=== PATIENT | female | born 1965 | race Caucasian/White ===

== ENCOUNTER 2016-10-27 08:36 | Outpatient (CLI) | payer OTHER | END 2016-10-27 08:37 | disposition home or self-care (01) | DX: I82.509 Chronic embolism and thrombosis of unspecified deep veins of unspecified lower extremity (principal); Z79.01 Long term (current) use of anticoagulants ==

== ENCOUNTER 2016-11-10 09:32 | Outpatient (CLI) | payer OTHER | END 2016-11-10 09:33 | disposition home or self-care (01) | DX: I82.509 Chronic embolism and thrombosis of unspecified deep veins of unspecified lower extremity (principal); Z79.01 Long term (current) use of anticoagulants ==

== ENCOUNTER 2016-11-24 08:39 | Outpatient (CLI) | payer OTHER | END 2016-11-24 08:40 | disposition home or self-care (01) | DX: I82.509 Chronic embolism and thrombosis of unspecified deep veins of unspecified lower extremity (principal); Z79.01 Long term (current) use of anticoagulants ==

== ENCOUNTER 2016-12-22 08:39 | Outpatient (CLI) | payer OTHER | END 2016-12-22 08:40 | disposition home or self-care (01) | DX: I82.509 Chronic embolism and thrombosis of unspecified deep veins of unspecified lower extremity (principal); Z79.01 Long term (current) use of anticoagulants ==

== ENCOUNTER 2017-01-03 08:00 | Outpatient (CLI) | payer OTHER | END 2017-01-03 08:01 | disposition home or self-care (01) | DX: I82.509 Chronic embolism and thrombosis of unspecified deep veins of unspecified lower extremity (principal); Z79.01 Long term (current) use of anticoagulants ==

== ENCOUNTER 2017-02-01 14:26 | Outpatient (CLI) | payer OTHER | END 2017-02-01 14:27 | disposition home or self-care (01) | DX: I82.509 Chronic embolism and thrombosis of unspecified deep veins of unspecified lower extremity (principal); Z79.01 Long term (current) use of anticoagulants ==

== ENCOUNTER 2017-02-14 12:28 | Outpatient (CLI) | payer OTHER | END 2017-02-14 12:29 | disposition home or self-care (01) | LOC: LAB.S 12:28 | PROVIDERS: ATTEND Internal Medicine | DX: I82.509 Chronic embolism and thrombosis of unspecified deep veins of unspecified lower extremity (principal); Z79.01 Long term (current) use of anticoagulants | CPT/HCPCS: 85610 ==

== ENCOUNTER 2017-02-21 08:34 | Outpatient (CLI) | payer OTHER | END 2017-02-21 08:35 | disposition home or self-care (01) | LOC: LAB.S 08:34 | PROVIDERS: ATTEND Internal Medicine | DX: I82.509 Chronic embolism and thrombosis of unspecified deep veins of unspecified lower extremity (principal); Z79.01 Long term (current) use of anticoagulants | CPT/HCPCS: 85610 ==

== ENCOUNTER 2017-03-07 14:12 | Outpatient (CLI) | payer OTHER | END 2017-03-07 23:59 | disposition home or self-care (01) | LOC: LAB.S 14:12 | PROVIDERS: ATTEND Internal Medicine | DX: I82.509 Chronic embolism and thrombosis of unspecified deep veins of unspecified lower extremity (principal); Z79.01 Long term (current) use of anticoagulants | CPT/HCPCS: 85610 ==

== ENCOUNTER 2017-04-01 20:42 | Emergency (ER) | payer OTHER ==
--- NOTE | 2017-04-01 21:09 | ED Physician Documentation ---
PD HPI LOWER EXT INJURY - Stated complaint Stated Complaint: RT ANKLE PAIN - Chief complaint Chief Complaint: Ext Problem - History obtained from History obtained from: Patient - History of Present Illness PD HPI LOW EXT INJURY LOCATION: Right, Ankle Type of injury: Fall Where injury occurred: Home Timing - onset: Enter time (17:00) Timing - details: Abrupt onset Improved by: Rest, Immobilization Worsened by: Moving, Palpating Associated symptoms: Swelling. No: Weakness, Numbness Similar symptoms before: Has not had sx before Recently seen: Not recently seen - Additional information Additional information: tripped at home 5pm tonight, sustained twisting injury to right ankle, c/o right ankle pain, lateral aspect Review of Systems Musculoskeletal: reports: Extremity pain, Joint pain, Extremity swelling, Joint swelling, Pain with weight bearing. 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 - Present Medications Home Medications: Ambulatory Orders Medication Instructions Recorded Confirmed Acetaminophen 1 mg PO Q8HR 04/01/17 04/01/17 HYDROcod/ACETAM 5/325 [Morganza 5/325] 1 - 2 ea PO Q6H PRN #15 tablet 04/01/17 - Allergies Allergies/Adverse Reactions: Allergies Allergy/AdvReac Type Severity Reaction Status Date / Time Penicillins Allergy Hives Verified 04/01/17 21:02 Sulfa (Sulfonamide Allergy Hives Verified 04/01/17 21:02 Antibiotics) - Social History Does the pt smoke?: No Smoking Status: Never smoker Does the pt drink ETOH?: No Does the pt have substance abuse?: No - Immunizations Immunizations are current?: Yes - POLST Patient has POLST: No PD ED PE NORMAL - Vitals Vital signs reviewed: Yes - General General: Alert and oriented X 3, No acute distress, Well developed/nourished - Derm Derm: Normal color, Warm and dry - Neuro Neuro: No motor deficit, No sensory deficit PD ED PE EXPANDED - Extremities Extremities: Tenderness (right lateral malleolus), Limited ROM, Swelling, Pedal Pulses Present, Sensory intact, Vascular intact Results - Vitals Vitals: Vital Signs - 24 hr 04/01/17 04/01/17 20:50 21:43 Temperature 37.3 C Heart Rate 101 H 76 Respiratory 17 18 Rate Blood Pressure 182/101 H 147/90 H O2 Saturation 98 97 Oxygen O2 Source Room air Procedures - Splint (location) Lower extremity right Splint applied by: Tech Type of splint: Fiberglass, Short leg, Posterior, Stirrup Other: Patient tolerated well, No complications, Neurovascular intact, Good alignment, Crutches provided PD MEDICAL DECISION MAKING - ED course Complexity details: reviewed results, re-evaluated patient, considered differential, d/w patient Departure - Departure Disposition: 01 Home, Self Care Clinical Impression: Fracture, fibula Qualifiers: Encounter type: initial encounter Fibula location: distal Fracture type: closed Fracture morphology: unspecified fracture morphology Laterality: unspecified laterality Qualified Code(s): S82.839A - Other fracture of upper and lower end of unspecified fibula, initial encounter for closed fracture Condition: Good Instructions: ED Crutch Walking, ED Splint Care Fiberglass, ED Fx Ankle Lateral Malleolus Follow-Up: Collins Merrill MD [Provider Admit Priv/Credential] - Within 3 Days (Call to arrange for next available appointment) Prescriptions: HYDROcod/ACETAM 5/325 [[place]organza 5/325] 1 - 2 ea PO Q6H PRN #15 tablet PRN Reason: Pain Forms: Activity restrictions Discharge Date/Time: 04/01/17 22:20
--- NOTE | 2017-04-01 21:39 | XRAY Preliminary Report ---
Exam: XR Ankle 3 View RT IMPRESSION: Acuna B ankle injury. There is mildly displaced fracture through the distal fibula at the level of the syndesmosis. No medial or posterior malleolar fracture. Joint spacing through the ankle mortise is within normal limits. [facility] SITE ID: [id number]
--- NOTE | 2017-04-01 21:41 | XRAY Report ---
EXAM: RIGHT ANKLE RADIOGRAPHY EXAM DATE: 04/01/2017 09:16 PM. CLINICAL HISTORY: Ankle pain COMPARISON: None. TECHNIQUE: 3 views. FINDINGS: Bones: There is a ventricular fracture through the distal fibula at the level of the syndesmosis. Mil d displacement. No evidence of medial or posterior malleolar fractures. Joints: Normal. No effusion. No subluxations. The ankle mortise is normally aligned. Soft Tissues: There is mild lateral ankle soft tissue swelling. IMPRESSION: Acuna B ankle injury. There is mildly displaced fracture through the distal fibula at the level of the syndesmosis. No medial or posterior malleolar fracture. Joint spacing through the ankle mortise is within normal limits. [facility] Referring Provider Line: [phone] SITE ID: [id number]
[2017-04-01 21:45] VITALS: BP 147/90
== END 2017-04-01 22:20 | disposition home or self-care (01) ==
LOC: ED 20:42
DX: S82.831A Other fracture of upper and lower end of right fibula, initial encounter for closed fracture (principal); W01.0XXA Fall on same level from slipping, tripping and stumbling without subsequent striking against object, initial encounter; X50.1XXA Overexertion from prolonged static or awkward postures, initial encounter; Y92.009 Unspecified place in unspecified non-institutional (private) residence as the place of occurrence of the external cause; Z86.718 Personal history of other venous thrombosis and embolism; Z79.01 Long term (current) use of anticoagulants
CPT/HCPCS: 29515; 99283

== ENCOUNTER 2017-04-06 14:35 | Outpatient (CLI) | payer OTHER | END 2017-04-06 14:36 | disposition home or self-care (01) | LOC: LAB.F 14:35 | PROVIDERS: ATTEND Internal Medicine | DX: I82.509 Chronic embolism and thrombosis of unspecified deep veins of unspecified lower extremity (principal); Z79.01 Long term (current) use of anticoagulants | CPT/HCPCS: 85610 ==

== ENCOUNTER 2017-05-04 13:41 | Outpatient (CLI) | payer OTHER | END 2017-05-04 13:42 | disposition home or self-care (01) | LOC: LAB.F 13:41 | PROVIDERS: ATTEND Internal Medicine | DX: I82.509 Chronic embolism and thrombosis of unspecified deep veins of unspecified lower extremity (principal); Z79.01 Long term (current) use of anticoagulants | CPT/HCPCS: 85610 ==

== ENCOUNTER 2017-05-18 14:10 | Outpatient (CLI) | payer OTHER | END 2017-05-18 14:11 | disposition home or self-care (01) | LOC: LAB.F 14:10 | PROVIDERS: ATTEND Internal Medicine | DX: I82.509 Chronic embolism and thrombosis of unspecified deep veins of unspecified lower extremity (principal); Z79.01 Long term (current) use of anticoagulants | CPT/HCPCS: 85610 ==

== ENCOUNTER 2017-06-01 14:12 | Outpatient (CLI) | payer OTHER | END 2017-06-01 14:13 | disposition home or self-care (01) | LOC: LAB.F 14:12 | PROVIDERS: ATTEND Internal Medicine | DX: I82.509 Chronic embolism and thrombosis of unspecified deep veins of unspecified lower extremity (principal); Z79.01 Long term (current) use of anticoagulants | CPT/HCPCS: 85610 ==

== ENCOUNTER 2017-06-14 08:45 | Outpatient (CLI) | payer OTHER | END 2017-06-14 08:46 | disposition home or self-care (01) | LOC: LAB.F 08:45 | PROVIDERS: ATTEND Internal Medicine | DX: I82.509 Chronic embolism and thrombosis of unspecified deep veins of unspecified lower extremity (principal); Z79.01 Long term (current) use of anticoagulants | CPT/HCPCS: 85610 ==

== ENCOUNTER 2017-07-12 10:02 | Outpatient (CLI) | payer OTHER | END 2017-07-12 10:03 | disposition home or self-care (01) | LOC: LAB.F 10:02 | PROVIDERS: ATTEND Internal Medicine | DX: I82.509 Chronic embolism and thrombosis of unspecified deep veins of unspecified lower extremity (principal); Z79.01 Long term (current) use of anticoagulants; I82.409 Acute embolism and thrombosis of unspecified deep veins of unspecified lower extremity; D68.52 Prothrombin gene mutation | CPT/HCPCS: 85610 ==

== ENCOUNTER 2017-08-15 10:26 | Outpatient (CLI) | payer OTHER | END 2017-08-15 10:27 | disposition home or self-care (01) | LOC: LAB.F 10:26 | PROVIDERS: ATTEND Internal Medicine | DX: I82.509 Chronic embolism and thrombosis of unspecified deep veins of unspecified lower extremity (principal); Z79.01 Long term (current) use of anticoagulants | CPT/HCPCS: 85610 ==

== ENCOUNTER 2017-09-12 10:31 | Outpatient (CLI) | payer OTHER | END 2017-09-12 10:32 | disposition home or self-care (01) | LOC: LAB.F 10:31 | PROVIDERS: ATTEND Internal Medicine | DX: I82.509 Chronic embolism and thrombosis of unspecified deep veins of unspecified lower extremity (principal); Z79.01 Long term (current) use of anticoagulants | CPT/HCPCS: 85610 ==

== ENCOUNTER 2017-10-10 10:03 | Outpatient (CLI) | payer OTHER | END 2017-10-10 10:04 | disposition home or self-care (01) | LOC: LAB.F 10:03 | PROVIDERS: ATTEND Internal Medicine | DX: I82.509 Chronic embolism and thrombosis of unspecified deep veins of unspecified lower extremity (principal); Z79.01 Long term (current) use of anticoagulants | CPT/HCPCS: 85610 ==

== ENCOUNTER 2017-11-07 09:34 | Outpatient (CLI) | payer OTHER | END 2017-11-07 09:35 | disposition home or self-care (01) | LOC: LAB.F 09:34 | PROVIDERS: ATTEND Internal Medicine | DX: I82.509 Chronic embolism and thrombosis of unspecified deep veins of unspecified lower extremity (principal); Z79.01 Long term (current) use of anticoagulants | CPT/HCPCS: 85610 ==

== ENCOUNTER 2017-11-14 09:29 | Outpatient (CLI) | payer OTHER | END 2017-11-14 09:30 | disposition home or self-care (01) | LOC: LAB.F 09:29 | PROVIDERS: ATTEND Internal Medicine | DX: I82.509 Chronic embolism and thrombosis of unspecified deep veins of unspecified lower extremity (principal); Z79.01 Long term (current) use of anticoagulants | CPT/HCPCS: 85610 ==

== ENCOUNTER 2017-11-21 14:22 | Outpatient (CLI) | payer OTHER | END 2017-11-21 14:23 | disposition home or self-care (01) | LOC: LAB.F 14:22 | PROVIDERS: ATTEND Internal Medicine | DX: I82.509 Chronic embolism and thrombosis of unspecified deep veins of unspecified lower extremity (principal); Z79.01 Long term (current) use of anticoagulants | CPT/HCPCS: 85610 ==

== ENCOUNTER 2017-12-19 12:42 | Outpatient (CLI) | payer OTHER | END 2017-12-19 12:43 | disposition home or self-care (01) | LOC: LAB.S 12:42 | PROVIDERS: ATTEND Internal Medicine | DX: I82.509 Chronic embolism and thrombosis of unspecified deep veins of unspecified lower extremity (principal); Z79.01 Long term (current) use of anticoagulants | CPT/HCPCS: 85610 ==

== ENCOUNTER 2018-01-17 10:31 | Outpatient (CLI) | payer OTHER | END 2018-01-17 10:32 | disposition home or self-care (01) | LOC: LAB.F 10:31 | PROVIDERS: ATTEND Internal Medicine | DX: I82.509 Chronic embolism and thrombosis of unspecified deep veins of unspecified lower extremity (principal); Z79.01 Long term (current) use of anticoagulants | CPT/HCPCS: 85610 ==

== ENCOUNTER 2018-02-13 12:06 | Outpatient (CLI) | payer OTHER | END 2018-02-13 12:07 | disposition home or self-care (01) | LOC: LAB.S 12:06 | PROVIDERS: ATTEND Internal Medicine | DX: I82.509 Chronic embolism and thrombosis of unspecified deep veins of unspecified lower extremity (principal); Z79.01 Long term (current) use of anticoagulants | CPT/HCPCS: 85610 ==

== ENCOUNTER 2018-02-20 11:32 | Outpatient (CLI) | payer OTHER | END 2018-02-20 11:33 | disposition home or self-care (01) | LOC: LAB.S 11:32 | PROVIDERS: ATTEND Internal Medicine | DX: I82.509 Chronic embolism and thrombosis of unspecified deep veins of unspecified lower extremity (principal); Z79.01 Long term (current) use of anticoagulants | CPT/HCPCS: 85610 ==

== ENCOUNTER 2018-03-20 10:21 | Outpatient (CLI) | payer OTHER | END 2018-03-20 10:22 | disposition home or self-care (01) | LOC: LAB.F 10:21 | PROVIDERS: ATTEND Internal Medicine | DX: I82.509 Chronic embolism and thrombosis of unspecified deep veins of unspecified lower extremity (principal); Z79.01 Long term (current) use of anticoagulants | CPT/HCPCS: 85610 ==

== ENCOUNTER 2018-04-18 11:13 | Outpatient (CLI) | payer OTHER | END 2018-04-18 11:14 | disposition home or self-care (01) | LOC: LAB.F 11:13 | PROVIDERS: ATTEND Internal Medicine | DX: I82.509 Chronic embolism and thrombosis of unspecified deep veins of unspecified lower extremity (principal); Z79.01 Long term (current) use of anticoagulants | CPT/HCPCS: 85610 ==

== ENCOUNTER 2018-05-15 10:42 | Outpatient (CLI) | payer OTHER | END 2018-05-15 10:43 | disposition home or self-care (01) | LOC: LAB.S 10:42 | PROVIDERS: ATTEND Internal Medicine | DX: I82.509 Chronic embolism and thrombosis of unspecified deep veins of unspecified lower extremity (principal); Z79.01 Long term (current) use of anticoagulants | CPT/HCPCS: 85610 ==

== ENCOUNTER → 2018-06-14 | Outpatient (CLI) | payer OTHER | LOC: LAB.F 08:00 | PROVIDERS: ATTEND Internal Medicine | DX: I82.509 Chronic embolism and thrombosis of unspecified deep veins of unspecified lower extremity (principal); Z79.01 Long term (current) use of anticoagulants | CPT/HCPCS: 85610 ==

== ENCOUNTER 2018-06-26 10:39 | Outpatient (CLI) | payer OTHER | END 2018-06-26 10:40 | disposition home or self-care (01) | LOC: LAB.F 10:39 | PROVIDERS: ATTEND Internal Medicine | DX: I82.509 Chronic embolism and thrombosis of unspecified deep veins of unspecified lower extremity (principal); Z79.01 Long term (current) use of anticoagulants | CPT/HCPCS: 85610 ==

== ENCOUNTER 2018-07-05 08:42 | Outpatient (CLI) | payer OTHER | END 2018-07-05 08:43 | disposition home or self-care (01) | LOC: LAB.F 08:42 | PROVIDERS: ATTEND Internal Medicine | DX: I82.509 Chronic embolism and thrombosis of unspecified deep veins of unspecified lower extremity (principal); Z79.01 Long term (current) use of anticoagulants | CPT/HCPCS: 85610 ==

== ENCOUNTER 2018-08-02 11:00 | Outpatient (CLI) | payer OTHER | END 2018-08-02 11:01 | disposition home or self-care (01) | LOC: LAB.F 11:00 | PROVIDERS: ATTEND Internal Medicine | DX: I82.509 Chronic embolism and thrombosis of unspecified deep veins of unspecified lower extremity (principal); Z79.01 Long term (current) use of anticoagulants | CPT/HCPCS: 85610 ==

== ENCOUNTER 2018-09-01 07:34 | Outpatient (CLI) | payer OTHER | END 2018-09-01 07:35 | disposition home or self-care (01) | LOC: LAB.F 07:34 | PROVIDERS: ATTEND Internal Medicine | DX: I82.509 Chronic embolism and thrombosis of unspecified deep veins of unspecified lower extremity (principal); Z79.01 Long term (current) use of anticoagulants | CPT/HCPCS: 85610 ==

== ENCOUNTER 2018-09-07 07:31 | Outpatient (CLI) | payer OTHER | END 2018-09-07 07:32 | disposition home or self-care (01) | LOC: LAB 07:31 | PROVIDERS: ATTEND Internal Medicine | DX: I82.509 Chronic embolism and thrombosis of unspecified deep veins of unspecified lower extremity (principal); Z79.01 Long term (current) use of anticoagulants | CPT/HCPCS: 85610 ==

== ENCOUNTER 2018-09-14 08:47 | Outpatient (CLI) | payer OTHER | END 2018-09-14 08:48 | disposition home or self-care (01) | LOC: LAB 08:47 | PROVIDERS: ATTEND Internal Medicine | DX: I82.509 Chronic embolism and thrombosis of unspecified deep veins of unspecified lower extremity (principal); Z79.01 Long term (current) use of anticoagulants | CPT/HCPCS: 85610 ==

== ENCOUNTER 2018-10-12 07:21 | Outpatient (CLI) | payer BC | END 2018-10-12 07:22 | disposition home or self-care (01) | LOC: LAB 07:21 | PROVIDERS: ATTEND Internal Medicine | DX: I82.509 Chronic embolism and thrombosis of unspecified deep veins of unspecified lower extremity (principal); Z79.01 Long term (current) use of anticoagulants | CPT/HCPCS: 85610 ==

== ENCOUNTER 2018-11-14 14:30 | Outpatient (CLI) | payer BC ==
[2018-11-14 17:17] LABS: BASOPHILS # (AUTO) 0.1 10^3/uL (0.0-0.1); EOSINOPHILS # (AUTO) 0.4 10^3/uL (0.0-0.7); EOSINOPHILS % (AUTO) 7.2 %; HGB - HEMOGLOBIN 14.7 g/dL (12.0-16.0); LYMPHOCYTES % (AUTO) 33.8 %; MEAN CORPUSCULAR HEMOGLOBIN 29.6 pg (27.0-31.0); MEAN CORPUSCULAR HGB CONC 32.8 g/dL (32.0-36.0); MEAN CORPUSCULAR VOLUME 90.3 fL (81.0-99.0); MEAN PLATELET VOLUME 8.2 fL (7.9-10.8); MONOCYTES # (AUTO) 0.4 10^3/uL (0.0-1.0); PLT - PLATELET COUNT 262 10^3/uL (130-450); RED BLOOD COUNT 4.95 10^6/uL (4.20-5.40); RED CELL DISTRIBUTION WIDTH 13.5 % (12.0-15.0); WHITE BLOOD COUNT 5.8 x10^3/uL (4.8-10.8)
[2018-11-14 17:27] LABS: ALBUMIN 4.2 g/dL (3.2-5.5); ALBUMIN/GLOBULIN RATIO 1.1 (1.0-2.2); ALKALINE PHOSPHATASE 81 IU/L (42-121); ALT ALANINE AMINOTRANSFERASE 49 IU/L (10-60); AST ASPARTATE AMINOTRANSFERASE 34 IU/L (10-42); BUN - BLOOD UREA NITROGEN 25 mg/dL (6-20); CALCIUM 9.9 mg/dL (8.5-10.3); CARBON DIOXIDE - CO2 29 mmol/L (21-32); CHLORIDE 98 mmol/L (101-111); CHOLESTEROL 202 mg/dL; CREATININE 0.8 mg/dL (0.4-1.0); GFR - MDRD 74 (>89); GLUCOSE 86 mg/dL (70-100); HDL CHOLESTEROL 68 mg/dL; LDL CHOLESTEROL,CALCULATED 113 mg/dL; LDL/HDL RATIO 1.7 (<4.4); SODIUM 139 mmol/L (135-145); VLDL CHOLESTEROL 21 mg/dL
== END 2018-11-14 14:31 | disposition home or self-care (01) ==
LOC: LAB.F 14:30
PROVIDERS: ATTEND Physician Assistant Medical
DX: Z00.00 Encounter for general adult medical examination without abnormal findings (principal); E55.9 Vitamin D deficiency, unspecified; I82.509 Chronic embolism and thrombosis of unspecified deep veins of unspecified lower extremity; Z79.899 Other long term (current) drug therapy; Z79.01 Long term (current) use of anticoagulants
CPT/HCPCS: 36415; 80053; 80061; 82306; 83721; 84443; 85025; 85610

== ENCOUNTER 2018-12-11 06:20 | Outpatient (CLI) | payer BC | END 2018-12-11 06:21 | disposition home or self-care (01) | LOC: LAB 06:20 | PROVIDERS: ATTEND Internal Medicine | DX: D68.51 Activated protein C resistance (principal) | CPT/HCPCS: 85610 ==

== ENCOUNTER 2019-01-16 07:03 | Outpatient (CLI) | payer BC | END 2019-01-16 07:04 | disposition home or self-care (01) | LOC: LAB 07:03 | PROVIDERS: ATTEND Internal Medicine | DX: D68.51 Activated protein C resistance (principal) | CPT/HCPCS: 85610 ==

== ENCOUNTER 2019-02-13 06:11 | Outpatient (CLI) | payer BC | END 2019-02-13 06:12 | disposition home or self-care (01) | LOC: LAB 06:11 | PROVIDERS: ATTEND Internal Medicine | DX: D68.51 Activated protein C resistance (principal) | CPT/HCPCS: 85610 ==

== ENCOUNTER 2019-02-21 03:13 | Outpatient (CLI) | payer BC | END 2019-02-21 03:14 | disposition home or self-care (01) | LOC: LAB 03:13 | PROVIDERS: ATTEND Internal Medicine | DX: D68.51 Activated protein C resistance (principal) | CPT/HCPCS: 85610 ==

== ENCOUNTER 2019-03-26 03:07 | Outpatient (CLI) | payer BC | END 2019-03-26 03:08 | disposition home or self-care (01) | LOC: LAB 03:07 | PROVIDERS: ATTEND Internal Medicine | DX: D68.51 Activated protein C resistance (principal) | CPT/HCPCS: 85610 ==

== ENCOUNTER 2019-04-02 09:44 | Outpatient (CLI) | payer BC | END 2019-04-02 09:45 | disposition home or self-care (01) | LOC: LAB.S 09:44 | PROVIDERS: ATTEND Internal Medicine | DX: D68.51 Activated protein C resistance (principal) | CPT/HCPCS: 85610 ==

== ENCOUNTER 2019-05-03 03:55 | Outpatient (CLI) | payer BC | END 2019-05-03 03:56 | disposition home or self-care (01) | LOC: LAB 03:55 | PROVIDERS: ATTEND Internal Medicine | DX: D68.51 Activated protein C resistance (principal) | CPT/HCPCS: 85610 ==

== ENCOUNTER 2019-05-10 04:41 | Outpatient (CLI) | payer BC | END 2019-05-10 04:42 | disposition home or self-care (01) | LOC: LAB 04:41 | PROVIDERS: ATTEND Internal Medicine | DX: D68.51 Activated protein C resistance (principal) | CPT/HCPCS: 85610 ==

== ENCOUNTER 2019-05-27 01:37 | Outpatient (CLI) | payer BC | END 2019-05-27 01:38 | disposition home or self-care (01) | LOC: LAB 01:37 | PROVIDERS: ATTEND Internal Medicine | DX: D68.51 Activated protein C resistance (principal) | CPT/HCPCS: 36415; 85610 ==

== ENCOUNTER 2019-06-28 03:48 | Outpatient (CLI) | payer BC | END 2019-06-28 03:49 | disposition home or self-care (01) | LOC: LAB 03:48 | PROVIDERS: ATTEND Internal Medicine | DX: D68.51 Activated protein C resistance (principal) | CPT/HCPCS: 85610 ==

== ENCOUNTER 2019-07-25 03:27 | Outpatient (CLI) | payer BC | END 2019-07-25 03:28 | disposition home or self-care (01) | LOC: LAB 03:27 | PROVIDERS: ATTEND Internal Medicine | DX: D68.51 Activated protein C resistance (principal) | CPT/HCPCS: 85610 ==

== ENCOUNTER 2019-08-24 07:44 | Outpatient (CLI) | payer BC | END 2019-08-24 07:45 | disposition home or self-care (01) | LOC: LAB.S 07:44 | PROVIDERS: ATTEND Nurse Practitioner Adult Health | DX: D68.51 Activated protein C resistance (principal); Z86.718 Personal history of other venous thrombosis and embolism | CPT/HCPCS: 85610 ==

== ENCOUNTER 2019-08-31 04:15 | Outpatient (CLI) | payer BC | END 2019-08-31 04:16 | disposition home or self-care (01) | LOC: LAB 04:15 | PROVIDERS: ATTEND Nurse Practitioner Adult Health | DX: D68.51 Activated protein C resistance (principal); Z86.718 Personal history of other venous thrombosis and embolism | CPT/HCPCS: 85610 ==

== ENCOUNTER 2019-09-19 04:13 | Outpatient (CLI) | payer BC | END 2019-09-19 04:14 | disposition home or self-care (01) | LOC: LAB 04:13 | PROVIDERS: ATTEND Nurse Practitioner Adult Health | DX: D68.51 Activated protein C resistance (principal) | CPT/HCPCS: 85610 ==

== ENCOUNTER 2019-10-01 08:21 | Outpatient (CLI) | payer BC | END 2019-10-01 08:22 | disposition home or self-care (01) | LOC: LAB.S 08:21 | PROVIDERS: ATTEND Nurse Practitioner Adult Health | DX: D68.51 Activated protein C resistance (principal) | CPT/HCPCS: 85610 ==

== ENCOUNTER 2019-10-15 06:46 | Outpatient (CLI) | payer BC | END 2019-10-15 06:47 | disposition home or self-care (01) | LOC: LAB 06:46 | PROVIDERS: ATTEND Nurse Practitioner Adult Health | DX: D68.51 Activated protein C resistance (principal) | CPT/HCPCS: 85610 ==

== ENCOUNTER 2019-10-30 06:25 | Outpatient (CLI) | payer BC | END 2019-10-30 06:26 | disposition home or self-care (01) | LOC: LAB 06:25 | PROVIDERS: ATTEND Nurse Practitioner Adult Health | DX: D68.51 Activated protein C resistance (principal) | CPT/HCPCS: 85610 ==

== ENCOUNTER 2019-11-27 06:36 | Outpatient (CLI) | payer BC | END 2019-11-27 06:37 | disposition home or self-care (01) | LOC: LAB 06:36 | PROVIDERS: ATTEND Nurse Practitioner Adult Health | DX: D68.51 Activated protein C resistance (principal) | CPT/HCPCS: 85610 ==

== ENCOUNTER 2019-12-18 07:12 | Outpatient (CLI) | payer BC | END 2019-12-18 07:13 | disposition home or self-care (01) | LOC: LAB 07:12 | PROVIDERS: ATTEND Nurse Practitioner Adult Health | DX: D68.51 Activated protein C resistance (principal); Z86.718 Personal history of other venous thrombosis and embolism | CPT/HCPCS: 85610 ==

== ENCOUNTER 2020-01-08 06:11 | Outpatient (CLI) | payer BC | END 2020-01-08 06:12 | disposition home or self-care (01) | LOC: LAB 06:11 | PROVIDERS: ATTEND Nurse Practitioner Adult Health | DX: D68.51 Activated protein C resistance (principal) | CPT/HCPCS: 85610 ==

== ENCOUNTER 2020-01-29 06:25 | Outpatient (CLI) | payer BC | END 2020-01-29 06:26 | disposition home or self-care (01) | LOC: LAB 06:25 | PROVIDERS: ATTEND Nurse Practitioner Adult Health | DX: D68.51 Activated protein C resistance (principal) | CPT/HCPCS: 85610 ==

== ENCOUNTER 2020-02-12 06:23 | Outpatient (CLI) | payer BC | END 2020-02-12 06:24 | disposition home or self-care (01) | LOC: LAB 06:23 | PROVIDERS: ATTEND Nurse Practitioner Adult Health | DX: D68.51 Activated protein C resistance (principal) | CPT/HCPCS: 85610 ==

== ENCOUNTER 2020-03-05 06:08 | Outpatient (CLI) | payer BC | END 2020-03-05 06:09 | disposition home or self-care (01) | LOC: LAB 06:08 | PROVIDERS: ATTEND Nurse Practitioner Adult Health | DX: D68.51 Activated protein C resistance (principal) | CPT/HCPCS: 85610 ==

== ENCOUNTER 2020-04-02 09:03 | Outpatient (CLI) | payer BC | END 2020-04-02 09:04 | disposition home or self-care (01) | LOC: LAB.R 09:03 | PROVIDERS: ATTEND Nurse Practitioner Adult Health | DX: D68.51 Activated protein C resistance (principal) | CPT/HCPCS: 85610 ==

== ENCOUNTER 2020-06-10 07:41 | Outpatient (CLI) | payer BC | END 2020-06-10 07:42 | disposition home or self-care (01) | LOC: LAB 07:41 | PROVIDERS: ATTEND Nurse Practitioner Adult Health | DX: D68.51 Activated protein C resistance (principal) | CPT/HCPCS: 85610 ==

== ENCOUNTER 2020-07-09 04:08 | Outpatient (CLI) | payer BC | END 2020-07-09 04:09 | disposition home or self-care (01) | LOC: LAB 04:08 | PROVIDERS: ATTEND Nurse Practitioner Adult Health | DX: D68.51 Activated protein C resistance (principal) | CPT/HCPCS: 85610 ==

== ENCOUNTER 2020-08-06 06:02 | Outpatient (CLI) | payer BC | END 2020-08-06 06:03 | disposition home or self-care (01) | LOC: LAB 06:02 | PROVIDERS: ATTEND Nurse Practitioner Adult Health | DX: D68.51 Activated protein C resistance (principal) | CPT/HCPCS: 85610 ==

== ENCOUNTER 2020-09-10 10:32 | Outpatient (CLI) | payer BC | END 2020-09-10 10:33 | disposition home or self-care (01) | LOC: LAB 10:32 | PROVIDERS: ATTEND Nurse Practitioner Adult Health | DX: D68.51 Activated protein C resistance (principal) | CPT/HCPCS: 85610 ==

== ENCOUNTER 2020-10-15 03:21 | Outpatient (CLI) | payer BC ==
--- OUTSIDE RECORDS SUMMARY | 2020-10-15 04:56 | EXTERNAL MEDICAL SUMMARY RPT | Continuity of Care Document ---
:1965 Demographics Phone Unavailable Preferred Language Unknown Marital Status Unknown Roman Catholic Affiliation Unknown Race Unknown Ethnic Group Unknown Author Organization [facility] Address [address] [place] [address] Phone Care Team Providers Name Role Phone MARINO Unavailable Unavailable Problems date description facility 2020-08-06 06:02 ACTIVATED PROTEIN C RESISTANCE [facility] 2020-08-06 07:30 ACTIVATED PROTEIN C RESISTANCE [facility] 2020-09-10 08:00 ACTIVATED PROTEIN C RESISTANCE [facility] 2020-09-10 10:32 ACTIVATED PROTEIN C RESISTANCE [facility] Allergies date description facility ATENOLOL [facility] PRAVASTATIN [facility] ACETAMINOPHEN [facility] PISTACHIO NUT [facility] PENICILLINS [facility] NO KNOWN ALLERGIES [facility] Penicillins [facility] Sulfa (Sulfonamide Antibiotics) [facility] Results test status date ordered by attending specimen zainab e null F 2020-08-06 [email or web address] SAMEERGILMA MARINO 4 03:16:00 03:12:00 facility observation status value reference units lab abnor mal line notes range code [facility] F 2.0 0.8-1.2 H Y OTHER [facility] A nticoagulant Indicati on INR rang e Venous Thrombos is, P.E. 2.0 - 3.0 Mech anical Valve 2.5 - 3.5 test status date ordered by attending specimen zainab e null F 2020-08-25 [email or web address] Ramon Hoffman 2019-10 11:04:00 11:04:00 null F 2020-08-25 TONA.01A Ramon Hoffman 2019-10 11:04:00 11:04:00 null F 2020-08-25 TONA.01A Ramon Hoffman 2019-10 11:04:00 11:04:00 null F 2020-08-25 TONA.01A Ramon Yasmin 2019-10 11:04:00 11:04:00 null F 2020-08-25 TONA.01A Ramon Yasmin 2019-10 11:04:00 11:04:00 null F 2020-08-25 TONA.01A Raomn Yasmin 2019-10 11:04:00 11:04:00 null F 2020-08-25 TONA.01A Ramon Yasmin 2019-10 11:04:00 11:04:00 null F 2020-08-25 TONA.01A Ramon Yasmin 2019-10 11:04:00 11:04:00 null F 2020-08-25 TONA.01A Ramon Yasmin 2019-10 11:04:00 11:04:00 null F 2020-08-25 TONA.01A Ramon Yasmin 2019-10 11:04:00 11:04:00 null F 2020-08-25 TONA.01A Ramon Yasmin 2019-10 11:04:00 11:04:00 null F 2020-08-25 TONA.01A Ramon Yasmin 2019-10 11:04:00 11:04:00 null F 2020-08-25 TONA.01A Ramon Yasmin 2019-10 11:04:00 11:04:00 null F 2020-08-25 TONA.01A Ramon Yasmin 2019-10 11:04:00 11:04:00 null F 2020-08-25 TONA.01A Ramon Yasmin 2019-10 11:04:00 11:04:00 null F 2020-08-25 TONA.01A Ramon Yasmin 2019-10 11:04:00 11:04:00 null F 2020-08-25 TONA.01A Ramon Yasmin 2019-10 11:04:00 11:04:00 null F 2020-08-25 TONA.01A Ramon Yasmin 2019-10 11:04:00 11:04:00 null F 2020-08-25 TONA.01A Ramon Yasmin 2019-10 11:04:00 11:04:00 facility observation status value reference units lab abnor mal line notes range code [facility] NOT unknown YES YES NO NO [facility] Center DETECTED NO NO Negative results in the sett ing ofa respirat ory illness may be due t o infectio n with pathogen s not detected by this dean t, or lower respirat ory tract infectio n that may not be detec rand by nasophar yngea l specim en. [facility] DETECTED results for this org anism do not preclude infectio n with thi s organism and may requ lisa addition al laborato ry testing (e.g., bacteria l and viral culture, immunofl uores cence, a nd radiogra phy) when evaluati ng a patient with possible respirat ory tract infectio n. [facility] NOT unknown Negative [facility] DETECTED results for this org anism do not preclude infectio n with thi s organism and may requ lisa addition al laborato ry testing (e.g., bacteria l and viral culture, immunofl uores cence, a nd radiogra phy) when evaluati ng a patient with possible respirat ory tract infectio n. [facility] NOT unknown [facility] DETECTED results in the sett ing ofa respirat ory illness may be due t o infectio n with pathogen s not detected by this dean t, or lower respirat ory tract infectio n that may not be detec rand by nasophar yngea l specim en. [facility] F NOT unknown Negative [facility] DETECTED results in the sett ing ofa respirat ory illness may be due t o infectio n with pathogen s not detected by this dean t, or lower respirat ory tract infectio n that may not be detec rand by nasophar yngea l specim en. [facility] DETECTED results in the sett ing ofa respirat ory illness may be due t o infectio n with pathogen s not detected by this dean t, or lower respirat ory tract infectio n that may not be detec rand by nasophar yngea l specim en. [facility] unknown [facility] DETECTED results in the sett ing ofa respirat ory illness may be due t o infectio n with pathogen s not detected by this dean t, or lower respirat ory tract infectio n that may not be detec rand by nasophar yngea l specim en. [facility] F NOT unknown A negative Medical Center DETECTED test result for this test indicate s that SARS-CoV -2 RNA was not present in the spec imen above th e limit of detectio n. Negative results do not prec lude infectio n with SARS-CoV -2 virus an d should n ot be the sole basis of a patient manageme nt decision . In some pat ients repeat testing at various time points m ay be necessar y for virus detectio n. False-ne gativ e result s may arise fr om improper sample collecti on, degradat ion of viral RNA during shipping or storage, the presence of PCR inhibito rs, and/or mutation in the SARS-CoV -2 virus. Thi s test has been authoriz ed by the FDA under an Emerg ency Use Authoriz ation (EUA) fo r use by [facility]. [facility] F NOT unknown Negative [facility] DETECTED results for this org anism do not preclude infectio n with thi s organism and may requ lisa addition al laborato ry testing (e.g., bacteria l and viral culture, immunofl uores cence, a nd radiogra phy) when evaluati ng a patient with possible respirat ory tract infectio n. [facility] F NOT unknown Negative [facility] DETECTED results in the sett ing ofa respirat ory illness may be due t o infectio n with pathogen s not detected by this dean t, or lower respirat ory tract infectio n that may not be detec rand by nasophar yngea l specim en. [facility] F NOT unknown Influenza A [facility] Center DETECTED including subtypes H1, H3, and H1-2009 not detected by the [employer] RP2.1 Pa amy (EUA), a multiple xed nucleic acid test int ended for the simultan eous qualitat amara detectio n and differen tiati on of nu cleic acids fr om multiple viral an d bacteria l respirat ory organism s. [facility] F NOT unknown Negative [facility] DETECTED results in the sett ing ofa respirat ory illness may be due t o infectio n with pathogen s not detected by this dean t, or lower respirat ory tract infectio n that may not be detec rand by nasophar yngea l specim en. [facility] F NOT unknown [facility] DETECTED results for this org anism do not preclude infectio n with thi s organism and may requ lisa addition al laborato ry testing (e.g., bacteria l and viral culture, immunofl uores cence, a nd radiogra phy) when evaluati ng a patient with possible respirat ory tract infectio n. [facility] NOT unknown [facility] DETECTED results in the sett ing ofa respirat ory illness may be due t o infectio n with pathogen s not detected by this dean t, or lower respirat ory tract infectio n that may not be detec rand by nasophar yngea l specim en. [facility] F NOT unknown Negative [facility] DETECTED results in the sett ing ofa respirat ory illness may be due t o infectio n with pathogen s not detected by this dean t, or lower respirat ory tract infectio n that may not be detec rand by nasophar yngea l specim en. [facility] F NOT unknown Negative [facility] DETECTED results in the sett ing ofa respirat ory illness may be due t o infectio n with pathogen s not detected by this dean t, or lower respirat ory tract infectio n that may not be detec rand by nasophar yngea l specim en. [facility] F NOT unknown [facility] DETECTED results in the sett ing ofa respirat ory illness may be due t o infectio n with pathogen s not detected by this dean t, or lower respirat ory tract infectio n that may not be detec rand by nasophar yngea l specim en. [facility] F NOT unknown [facility] DETECTED results in the sett ing ofa respirat ory illness may be due t o infectio n with pathogen s not detected by this dean t, or lower respirat ory tract infectio n that may not be detec rand by nasophar yngea l specim en. [facility] F NOT unknown Negative [facility] DETECTED results in the sett ing ofa respirat ory illness may be due t o infectio n with pathogen s not detected by this dean t, or lower respirat ory tract infectio n that may not be detec rand by ravin murray. test status date ordered by attending specimen zainab e null F 2020-09-10 [email or web address] LISA PICHARDO 2020-09- 9 02:57:00 02:20:00 facility observation status value reference units lab abnor mal line notes range code [facility] F 2.6 0.8-1.2 H Y COUMADIN [facility] O ral Anticoag ulant Indicati on INR rang e Venous Thrombos is, P.E. 2.0 - 3.0 Mech anical Valve 2.5 - 3.5 test status date ordered by attending specimen zainab e null F 2020-10-15 MARCIA. LISA PICHARDO 2020-10-03 3 03:38:00 03:35:00 facility observation status value reference units lab abnor mal line notes range code [facility] F 2.8 0.8-1.2 H Y OTHER [facility] A nticoagulant Indicati on INR rang e Venous Thrombos is, P.E. 2.0 - 3.0 Mech anical Valve 2.5 - 3.5 Social History date description facility [id number]
== END 2020-10-15 03:22 | disposition home or self-care (01) ==
LOC: LAB 03:21
PROVIDERS: ATTEND Nurse Practitioner Adult Health
DX: D68.51 Activated protein C resistance (principal)
CPT/HCPCS: 85610

== ENCOUNTER 2020-11-18 03:56 | Outpatient (CLI) | payer BC | END 2020-11-18 03:57 | disposition home or self-care (01) | LOC: LAB 03:56 | PROVIDERS: ATTEND Nurse Practitioner Adult Health | DX: D68.51 Activated protein C resistance (principal) | CPT/HCPCS: 85610 ==

== ENCOUNTER 2020-12-24 02:59 | Outpatient (CLI) | payer BC | END 2020-12-24 03:00 | disposition home or self-care (01) | LOC: LAB 02:59 | PROVIDERS: ATTEND Nurse Practitioner Adult Health | DX: D68.51 Activated protein C resistance (principal) | CPT/HCPCS: 85610 ==

== ENCOUNTER 2021-01-16 17:40 | Outpatient (CLI) | payer BC ==
[2021-01-16 20:41] LABS: ESTIMATED AVERAGE GLUCOSE 108 mg/dL (70-100); HEMOGLOBIN A1c% 5.4 % (4.27-6.07)
[2021-01-16 21:16] LABS: BASOPHILS # (AUTO) 0.1 10^3/uL (0.0-0.1); BASOPHILS % (AUTO) 1.1 %; EOSINOPHILS # (AUTO) 0.4 10^3/uL (0.0-0.7); EOSINOPHILS % (AUTO) 6.9 %; HCT - HEMATOCRIT 44.3 % (37.0-47.0); HGB - HEMOGLOBIN 14.5 g/dL (12.0-16.0); LYMPHOCYTES # (AUTO) 2.2 10^3/uL (1.5-3.5); LYMPHOCYTES % (AUTO) 40.4 %; MEAN CORPUSCULAR HEMOGLOBIN 29.5 pg (27.0-31.0); MEAN CORPUSCULAR HGB CONC 32.7 g/dL (32.0-36.0); MEAN CORPUSCULAR VOLUME 90.2 fL (81.0-99.0); MEAN PLATELET VOLUME 10.1 fL (7.9-10.8); MONOCYTES # (AUTO) 0.4 10^3/uL (0.0-1.0); MONOCYTES % (AUTO) 6.3 %; NEUTROPHILS # (AUTO) 2.5 10^3/uL (1.5-6.6); NEUTROPHILS % (AUTO) 45.1 %; PLT - PLATELET COUNT 275 10^3/uL (130-450); RED BLOOD COUNT 4.91 10^6/uL (4.20-5.40); RED CELL DISTRIBUTION WIDTH 12.4 % (12.0-15.0); WHITE BLOOD COUNT 5.5 x10^3/uL (4.8-10.8)
[2021-01-16 21:42] LABS: ALBUMIN 4.5 g/dL (3.2-5.5); ALBUMIN/GLOBULIN RATIO 1.4 (1.0-2.2); ALKALINE PHOSPHATASE 77 IU/L (42-121); ALT ALANINE AMINOTRANSFERASE 26 IU/L (10-60); AST ASPARTATE AMINOTRANSFERASE 25 IU/L (10-42); BILIRUBIN,TOTAL 0.7 mg/dL (0.2-1.0); BUN - BLOOD UREA NITROGEN 25 mg/dL (6-20); CALCIUM 10.1 mg/dL (8.5-10.3); CARBON DIOXIDE - CO2 28 mmol/L (21-32); CHLORIDE 105 mmol/L (101-111); CHOL/HDL RATIO 3.1 (<4.4); CHOLESTEROL 207 mg/dL; CREATININE 0.7 mg/dL (0.4-1.0); GFR - MDRD 86 (>89); GLUCOSE 101 mg/dL (70-100); HDL CHOLESTEROL 66 mg/dL; LDL CHOLESTEROL,CALCULATED 128 mg/dL; LDL/HDL RATIO 1.9 (<4.4); SODIUM 142 mmol/L (135-145); TOTAL PROTEIN 7.8 g/dL (6.7-8.2); TRIGLYCERIDES 63 mg/dL; VLDL CHOLESTEROL 13 mg/dL
[2021-01-16 21:48] LABS: INR 1.9 (0.8-1.2); PT - PROTHROMBIN TIME 20.8 secs (9.9-12.6)
[2021-01-16 21:53] LABS: THYROID STIMULATING HORMONE 4.66 uIU/mL (0.34-5.60)
[2021-01-19 13:41] LABS: HIV AG/AB 4TH GEN NON-REACTIVE (NON-REACTIVE)
[2021-01-19 13:56] LABS: HEPATITIS C ANTIBODY NON-REACTIVE (NON-REACTIVE)
== END 2021-01-16 17:41 | disposition home or self-care (01) ==
LOC: LAB.S 17:40
PROVIDERS: ATTEND Nurse Practitioner Adult Health
DX: Z00.00 Encounter for general adult medical examination without abnormal findings (principal); Z11.4 Encounter for screening for human immunodeficiency virus [HIV]; Z11.59 Encounter for screening for other viral diseases; D68.51 Activated protein C resistance; Z86.718 Personal history of other venous thrombosis and embolism
CPT/HCPCS: 36415; 80053; 80061; 83036; 83721; 84443; 85025; 85610; 86803; 87389

== ENCOUNTER 2021-02-06 07:03 | Outpatient (CLI) | payer BC | END 2021-02-06 07:04 | disposition home or self-care (01) | LOC: LAB.S 07:03 | PROVIDERS: ATTEND Nurse Practitioner Adult Health | DX: Z86.718 Personal history of other venous thrombosis and embolism (principal); D68.51 Activated protein C resistance | CPT/HCPCS: 36416; 85610 ==

== ENCOUNTER 2021-03-06 07:15 | Outpatient (CLI) | payer BC | END 2021-03-06 07:16 | disposition home or self-care (01) | LOC: LAB.S 07:15 | PROVIDERS: ATTEND Nurse Practitioner Adult Health | DX: Z86.718 Personal history of other venous thrombosis and embolism (principal); D68.51 Activated protein C resistance | CPT/HCPCS: 36416; 85610 ==

== ENCOUNTER 2021-04-02 07:10 | Outpatient (CLI) | payer BC | END 2021-04-02 07:11 | disposition home or self-care (01) | LOC: LAB.S 07:10 | PROVIDERS: ATTEND Nurse Practitioner Adult Health | DX: Z86.718 Personal history of other venous thrombosis and embolism (principal); D68.51 Activated protein C resistance | CPT/HCPCS: 36416; 85610 ==

== ENCOUNTER 2021-04-30 07:40 | Outpatient (CLI) | payer BC | END 2021-04-30 07:41 | disposition home or self-care (01) | LOC: LAB.S 07:40 | PROVIDERS: ATTEND Nurse Practitioner Adult Health | DX: Z86.718 Personal history of other venous thrombosis and embolism (principal); D68.51 Activated protein C resistance | CPT/HCPCS: 36416; 85610 ==

== ENCOUNTER 2021-05-27 07:20 | Outpatient (CLI) | payer BC | END 2021-05-27 07:21 | disposition home or self-care (01) | LOC: LAB.S 07:20 | PROVIDERS: ATTEND Nurse Practitioner Adult Health | DX: Z86.718 Personal history of other venous thrombosis and embolism (principal); D68.51 Activated protein C resistance | CPT/HCPCS: 36416; 85610 ==

== ENCOUNTER 2021-06-25 07:21 | Outpatient (CLI) | payer BC | END 2021-06-25 07:22 | disposition home or self-care (01) | LOC: LAB.S 07:21 | PROVIDERS: ATTEND Nurse Practitioner Adult Health | DX: Z86.718 Personal history of other venous thrombosis and embolism (principal); D68.51 Activated protein C resistance | CPT/HCPCS: 36416; 85610 ==

== ENCOUNTER 2021-07-16 07:29 | Outpatient (CLI) | payer BC | END 2021-07-16 07:30 | disposition home or self-care (01) | LOC: LAB.S 07:29 | PROVIDERS: ATTEND Nurse Practitioner Adult Health | DX: Z86.718 Personal history of other venous thrombosis and embolism (principal); D68.51 Activated protein C resistance | CPT/HCPCS: 36416; 85610 ==

== ENCOUNTER 2021-08-06 07:14 | Outpatient (CLI) | payer BC | END 2021-08-06 07:15 | disposition home or self-care (01) | LOC: LAB.S 07:14 | PROVIDERS: ATTEND Nurse Practitioner Adult Health | DX: D68.51 Activated protein C resistance (principal); Z86.718 Personal history of other venous thrombosis and embolism | CPT/HCPCS: 36416; 85610 ==

== ENCOUNTER 2021-08-20 07:27 | Outpatient (CLI) | payer BC | END 2021-08-20 07:28 | disposition home or self-care (01) | LOC: LAB.S 07:27 | PROVIDERS: ATTEND Nurse Practitioner Adult Health | DX: Z86.718 Personal history of other venous thrombosis and embolism (principal); D68.51 Activated protein C resistance | CPT/HCPCS: 36416; 85610 ==

== ENCOUNTER 2021-10-29 07:08 | Outpatient (CLI) | payer BC | END 2021-10-29 07:09 | disposition home or self-care (01) | LOC: LAB.S 07:08 | PROVIDERS: ATTEND Nurse Practitioner Adult Health | DX: D68.51 Activated protein C resistance (principal); Z86.718 Personal history of other venous thrombosis and embolism | CPT/HCPCS: 36416; 85610 ==

== ENCOUNTER 2021-12-10 07:15 | Outpatient (CLI) | payer BC | END 2021-12-10 07:16 | disposition home or self-care (01) | LOC: LAB.S 07:15 | PROVIDERS: ATTEND Nurse Practitioner Adult Health | DX: D68.51 Activated protein C resistance (principal); Z86.718 Personal history of other venous thrombosis and embolism | CPT/HCPCS: 36416; 85610 ==

== ENCOUNTER 2022-01-21 07:14 | Outpatient (CLI) | payer BC | END 2022-01-21 07:15 | disposition home or self-care (01) | LOC: LAB.S 07:14 | PROVIDERS: ATTEND Nurse Practitioner Adult Health | DX: D68.51 Activated protein C resistance (principal); Z86.718 Personal history of other venous thrombosis and embolism | CPT/HCPCS: 36416; 85610 ==

== ENCOUNTER 2022-04-15 10:11 | Outpatient (CLI) | payer OTHER | END 2022-04-15 10:12 | disposition home or self-care (01) | LOC: LAB.S 10:11 | PROVIDERS: ATTEND Nurse Practitioner Adult Health | DX: Z86.718 Personal history of other venous thrombosis and embolism (principal); D68.51 Activated protein C resistance | CPT/HCPCS: 36416; 85610 ==

== ENCOUNTER 2022-06-03 10:17 | Outpatient (CLI) | payer OTHER | END 2022-06-03 10:18 | disposition home or self-care (01) | LOC: LAB.S 10:17 | PROVIDERS: ATTEND Nurse Practitioner Adult Health | DX: D68.51 Activated protein C resistance (principal); Z86.718 Personal history of other venous thrombosis and embolism | CPT/HCPCS: 36416; 85610 ==

== ENCOUNTER 2022-06-11 07:11 | Outpatient (CLI) | payer OTHER | END 2022-06-11 07:12 | disposition home or self-care (01) | LOC: LAB.S 07:11 | PROVIDERS: ATTEND Nurse Practitioner Adult Health | DX: D68.51 Activated protein C resistance (principal); Z86.718 Personal history of other venous thrombosis and embolism | CPT/HCPCS: 36416; 85610 ==

== ENCOUNTER 2022-07-05 07:24 | Outpatient (CLI) | payer OTHER | END 2022-07-05 07:25 | disposition home or self-care (01) | LOC: LAB.S 07:24 | PROVIDERS: ATTEND Nurse Practitioner Adult Health | DX: D68.51 Activated protein C resistance (principal); Z86.718 Personal history of other venous thrombosis and embolism | CPT/HCPCS: 36416; 85610 ==

== ENCOUNTER 2022-07-28 07:38 | Outpatient (CLI) | payer OTHER ==
[2022-07-28 14:12] LABS: BASOPHILS # (AUTO) 0.1 10^3/uL (0.0-0.1); BASOPHILS % (AUTO) 1.1 %; EOSINOPHILS # (AUTO) 0.3 10^3/uL (0.0-0.7); EOSINOPHILS % (AUTO) 5.5 %; HCT - HEMATOCRIT 44.1 % (37.0-47.0); LYMPHOCYTES % (AUTO) 37.2 %; MEAN CORPUSCULAR HEMOGLOBIN 29.1 pg (27.0-31.0); MEAN CORPUSCULAR HGB CONC 31.7 g/dL (32.0-36.0); MEAN CORPUSCULAR VOLUME 91.7 fL (81.0-99.0); MEAN PLATELET VOLUME 10.4 fL (7.9-10.8); MONOCYTES # (AUTO) 0.4 10^3/uL (0.0-1.0); MONOCYTES % (AUTO) 7.4 %; NEUTROPHILS # (AUTO) 2.6 10^3/uL (1.5-6.6); NEUTROPHILS % (AUTO) 48.6 %; PLT - PLATELET COUNT 253 10^3/uL (130-450); RED BLOOD COUNT 4.81 10^6/uL (4.20-5.40); RED CELL DISTRIBUTION WIDTH 12.6 % (12.0-15.0); WHITE BLOOD COUNT 5.4 x10^3/uL (4.8-10.8)
[2022-07-28 14:33] LABS: ALBUMIN 4.1 g/dL (3.2-5.5); ALBUMIN/GLOBULIN RATIO 1.3 (1.0-2.2); ALKALINE PHOSPHATASE 82 IU/L (42-121); ALT ALANINE AMINOTRANSFERASE 23 IU/L (10-60); AST ASPARTATE AMINOTRANSFERASE 26 IU/L (10-42); BILIRUBIN,TOTAL 0.4 mg/dL (0.2-1.0); BUN - BLOOD UREA NITROGEN 20 mg/dL (6-20); CALCIUM 9.5 mg/dL (8.5-10.3); CARBON DIOXIDE - CO2 28 mmol/L (21-32); CHLORIDE 103 mmol/L (101-111); CHOL/HDL RATIO 2.8 (<4.4); CHOLESTEROL 179 mg/dL; CREATININE 0.8 mg/dL (0.4-1.0); GFR - MDRD 74 (>89); GLUCOSE 95 mg/dL (70-100); HDL CHOLESTEROL 65 mg/dL; LDL CHOLESTEROL,CALCULATED 101 mg/dL; LDL/HDL RATIO 1.6 (<4.4); POTASSIUM 4.3 mmol/L (3.5-5.0); SODIUM 138 mmol/L (135-145); TOTAL PROTEIN 7.3 g/dL (6.7-8.2); TRIGLYCERIDES 65 mg/dL; VLDL CHOLESTEROL 13 mg/dL
[2022-07-28 14:44] LABS: THYROID STIMULATING HORMONE 3.2 uIU/mL (0.34-5.60)
[2022-07-28 20:05] LABS: ESTIMATED AVERAGE GLUCOSE 108 mg/dL (70-100); HEMOGLOBIN A1c% 5.4 % (4.27-6.07)
== END 2022-07-28 07:39 | disposition home or self-care (01) ==
LOC: LAB.S 07:38
PROVIDERS: ATTEND Nurse Practitioner Adult Health
DX: Z00.00 Encounter for general adult medical examination without abnormal findings (principal)
CPT/HCPCS: 36415; 80053; 80061; 83036; 83721; 84443; 85025; 86317

== ENCOUNTER 2022-09-09 08:03 | Outpatient (CLI) | payer OTHER | END 2022-09-09 08:04 | disposition home or self-care (01) | LOC: LAB.S 08:03 | PROVIDERS: ATTEND Nurse Practitioner Adult Health | DX: D68.51 Activated protein C resistance (principal); Z86.718 Personal history of other venous thrombosis and embolism | CPT/HCPCS: 36416; 85610 ==

== ENCOUNTER 2022-09-30 07:36 | Outpatient (CLI) | payer OTHER | END 2022-09-30 07:37 | disposition home or self-care (01) | LOC: LAB.S 07:36 | PROVIDERS: ATTEND Nurse Practitioner Adult Health | DX: D68.51 Activated protein C resistance (principal); Z86.718 Personal history of other venous thrombosis and embolism | CPT/HCPCS: 36416; 85610 ==